=== PATIENT | male | born 1985 | race African-American/Black ===

== ENCOUNTER 2017-11-15 00:14 | Emergency (ER) | payer OTHER ==
[~2017-11-15] VITALS: Ht 170.2 cm; Wt 95.4 kg
[2017-11-15 00:25] VITALS: BP 144/103
[2017-11-15] MEDS ORDERED: VIGAMOX 0.60 DROP/3 BOTH EYES (01:35)
== END 2017-11-15 02:01 | disposition home or self-care (01) ==
LOC: EME 00:14
DX: H16.9 Unspecified keratitis (principal); Z88.0 Allergy status to penicillin
CPT/HCPCS: 99281; 99285